=== PATIENT | female | born 1970 | race African-American/Black ===

== ENCOUNTER 2022-12-10 06:28 | Inpatient (IN) | payer BC, MEDICARE ==
[2022-12-10 07:18] LABS: Actual Bicarbonate (HCO3v) 19.9 mEq/L (22-28); Base Excess -3.8 mEq/L (-2.0 to +3.0); Calcium, Ionized (venous) 1.05 mmol/L (1.16-1.32); Chloride (VBG) 101 mmol/L (98-106); Hematocrit-VBG 47 % (36.0-47.0); Hemoglobin (Hb) 15.9 g/dL (11.7-16.0); Potassium (VBG) 4.58 mmol/L (3.70-5.30); Sodium 136.4 mmol/L (133-146); pH (venous) 7.401 (7.32-7.43)
[2022-12-10 07:20] LABS: #Eosinphils 0.1 thou/uL (0.0-0.7); #Lymphocytes 0.3 thou/uL (1.20-3.40); #Monocytes 0.3 thou/uL (0.11-0.59); #Neutrophils 6.3 thou/uL (1.40-6.50); %Eosinophils 0.7 % (0.0-10.0); %Monocytes 3.8 % (0.0-10.0); %Neutrophils 91.4 % (42.0-75.0); Hemoglobin 15.4 g/dL (12.0-16.0); Mean Corpuscular HGB CONC 34.4 g/dL (32.0-36.0); Mean Corpuscular Volume 87.2 fl (78.0-98.0); Platelet Count 151 10x3/uL (130-400); RBC Distribution Width 16.4 % (11.5-14.5); Red Blood Cell (RBC) Count 5.14 mill/uL (4.20-5.40); White Blood Cell (WBC) Count 6.9 10x3/uL (4.8-10.8)
[2022-12-10] MEDS ORDERED: Morphine 4 MG/ML VIAL ONE (07:34)
[2022-12-10] MEDS ORDERED: Ondansetron PF 4 MG/2 ML Vial ONE (07:34)
[2022-12-10 07:40] LABS: ALT (SGPT) 39 U/L (8-55); AST (SGOT) 26 U/L (5-34); Albumin 4.3 g/dL (3.5-5.0); Alkaline Phosphatase 81 U/L (40-110); Anion Gap 21 mmol/L (10-20); BUN (Urea Nitrogen) 34 mg/dL (9.8-20.1); Bilirubin, Total 0.4 mg/dL (0.2-1.2); Calc. Creatinine Clearance 0 mL/min (70-130); Calcium 10.1 mg/dL (7.8-10.44); Carbon Dioxide 17 mmol/L (22-29); Chloride 102 mmol/L (98-107); Estimated GFR 35; Globulin 4.1 g/dL (2.4-3.5); Potassium 4.8 mmol/L (3.5-5.1); Protein, Total 8.4 g/dL (6.0-8.3); Sodium 135 mmol/L (136-145)
[2022-12-10 07:44] LABS: Glucose 445 mg/dL (70-105)
[2022-12-10] MEDS ORDERED: Calcium Carbonate 500 MG ChewTAB PO PRN (08:44)
[2022-12-10] MEDS ORDERED: Ondansetron PF 4 MG/2 ML Vial IVP PRN (08:44)
[2022-12-10] MEDS ORDERED: Acetaminophen 325 MG TAB PO PRN (08:44)
[2022-12-10] MEDS ORDERED: Senokot S 8.6-50 MG TAB PO PRN (08:44)
[2022-12-10] MEDS ORDERED: Insulin Regular 300 UNITS/3 ML VIAL SC PRN ×2 (08:44→12:43)
[2022-12-10] MEDS ORDERED: Dextrose 50% Abboject 50 ML SYRINGE SLOW IVP PRN (08:44)
[2022-12-10] MEDS ORDERED: Ondansetron ODT 4 MG TAB PO PRN (08:44)
[2022-12-10] MEDS ORDERED: Dextrose 5% in Water 1,000 ML IV PRN (08:44)
[2022-12-10] MEDS ORDERED: Insulin Regular 300 UNITS/3 ML VIAL ONE (09:03)
[2022-12-10 09:08] LABS: Magnesium 1.8 mg/dL (1.6-2.6); Phosphorus 4.4 mg/dL (2.3-4.7)
[2022-12-10] MEDS ORDERED: Electrolyte Replacement Protocol 1 EACH FS SCH (09:45)
[2022-12-10 10:11] LABS: Bacteria/HPF 2+ HPF (None Seen); Bilirubin Negative (Negative); Blood, Urine Negative (Negative); Clarity Clear (Clear); Glucose, Urine (Dipstick) Greater than 1000 mg/dL (Negative); Ketone, Urine 20 mg/dL (Negative); Leukocyte Negative Leu/uL (Negative); Nitrite 2+ (Negative); Protein, Urine (Dipstick) Negative (Neg-Trace); RBC/HPF 0-3 HPF (0-3); Specific Gravity, Urine 1.039 (1.002-1.036); Squamous Epithelial 0-3 HPF (0-3); Urobilinogen Normal mg/dL (Less than 2); WBC/HPF 0-3 HPF (0-3)
[2022-12-10 10:42] LABS: Lactic Acid 2.2 mmol/L (0.5-2.2)
[2022-12-10] MEDS ORDERED: cefTRIAXone\\ROCEPHIN 1 GM in Sodium Chloride 0.9% 100 ML IVPB SCH (11:00)
[2022-12-10 11:08] LABS: Troponin I 0.014 ng/mL (< 0.028)
[2022-12-10] MEDS ORDERED: Pantoprazole 40 MG VIAL IVP SCH (11:30)
[2022-12-10] MEDS ORDERED: 1/2 NS w/KCL 20 mEq 1,000 ML IV SCH (11:30)
[2022-12-10 11:42] LABS: Hemoglobin A1c 11.8 % (4.0-6.0)
[2022-12-10] MEDS ORDERED: Iopamidol-370 76% 500 ML MDV (1 ML CHARGE) ONE (11:45)
[2022-12-10] MEDS ORDERED: Magnesium 2 GM/50 ML(in water) 2 GM in Premix Bag 1 BAG IVPB SCH (12:30)
[2022-12-10] MEDS ORDERED: Aspirin 81 mg Enteric Coated Tablet PO SCH (12:30)
[2022-12-10] MEDS ORDERED: Insulin Glargine 30 UNITS/0.3 ML VIAL SC SCH (12:45)
[2022-12-10] MEDS ORDERED: NIFEdipine XL 30 MG TAB PO PRN (12:47)
[2022-12-10 13:49] LABS: Anion Gap 15 mmol/L (10-20); BUN (Urea Nitrogen) 31 mg/dL (9.8-20.1); Calc. Creatinine Clearance 0 mL/min (70-130); Calcium 9.1 mg/dL (7.8-10.44); Carbon Dioxide 21 mmol/L (22-29); Chloride 106 mmol/L (98-107); Estimated GFR 47; Glucose 279 mg/dL (70-105); Potassium 4.2 mmol/L (3.5-5.1); Sodium 138 mmol/L (136-145)
[2022-12-10] MEDS: cefTRIAXone\\ROCEPHIN 1 GM in Sodium Chloride 0.9% 100 ML IVPB SCH (14:00)
[2022-12-10 14:12] LABS: Troponin I 0.014 ng/mL (< 0.028)
[2022-12-10] MEDS ORDERED: Aspirin 81 mg Enteric Coated Tablet ONE (15:26)
[2022-12-10] MEDS ORDERED: Magnesium 2 GM/50 ML BAG (IN WATER) ONE (15:26)
[2022-12-10] MEDS ORDERED: Pantoprazole 40 MG VIAL ONE (15:26)
[2022-12-10] MEDS ORDERED: cefTRIAXone (ROCEPHIN) 1 GM VIAL ONE (16:28)
[2022-12-10] MEDS ORDERED: hydrALAZINE 25 MG TAB ONE (16:37)
[2022-12-10] MEDS: Heparin 5,000 UNITS/ML VIAL SC SCH ×2 (16:39→21:55)
[2022-12-10] MEDS: hydrALAZINE 25 MG TAB PO SCH ×2 (16:43→21:55)
[2022-12-10 18:19] VITALS: BMI 36.0
[2022-12-10] MEDS: 1/2 NS w/KCL 20 mEq 1,000 ML IV SCH ×2 (18:22→18:42)
[2022-12-10] MEDS: Cilostazol 100 MG TAB PO SCH (21:55)
[2022-12-10] MEDS: Insulin Glargine 30 UNITS/0.3 ML VIAL SC SCH (21:55)
[2022-12-10] MEDS: HumaLOG 300 UNITS/3 ML VIAL SC PRN (23:08)
[2022-12-11] MEDS: HumaLOG 300 UNITS/3 ML VIAL SC PRN (01:17)
[2022-12-11] MEDS: 1/2 NS w/KCL 20 mEq 1,000 ML IV SCH ×2 (02:25→10:09)
[2022-12-11 04:41] LABS: #Lymphocytes 0.5 thou/uL (1.20-3.40); #Monocytes 0.3 thou/uL (0.11-0.59); #Neutrophils 2.3 thou/uL (1.40-6.50); %Basophils 0.5 % (0.0-1.0); %Eosinophils 0.7 % (0.0-10.0); %Lymphocytes 15.9 % (21.0-51.0); %Monocytes 10.2 % (0.0-10.0); %Neutrophils 72.7 % (42.0-75.0); Hemoglobin 12.7 g/dL (12.0-16.0); Mean Corpuscular HGB CONC 33.2 g/dL (32.0-36.0); Mean Corpuscular Hemoglobin 29.1 pg (27.0-31.0); Mean Corpuscular Volume 87.5 fl (78.0-98.0); Mean Platelet Volume 10.4 fL (7.4-10.4); Platelet Count 128 10x3/uL (130-400); RBC Distribution Width 16.3 % (11.5-14.5); Red Blood Cell (RBC) Count 4.37 mill/uL (4.20-5.40); White Blood Cell (WBC) Count 3.2 10x3/uL (4.8-10.8)
[2022-12-11 05:10] LABS: Anion Gap 13 mmol/L (10-20); BUN (Urea Nitrogen) 27 mg/dL (9.8-20.1); Calc. Creatinine Clearance 84 mL/min (70-130); Calcium 8.8 mg/dL (7.8-10.44); Carbon Dioxide 22 mmol/L (22-29); Chloride 105 mmol/L (98-107); Estimated GFR 50; Glucose 203 mg/dL (70-105); Magnesium 1.9 mg/dL (1.6-2.6); Phosphorus 2.5 mg/dL (2.3-4.7); Potassium 4.1 mmol/L (3.5-5.1); Sodium 136 mmol/L (136-145)
[2022-12-11] MEDS ORDERED: Magnesium 2 GM/50 ML(in water) 2 GM in Premix Bag 1 BAG IVPB SCH (08:00)
[2022-12-11] MEDS ORDERED: Pantoprazole 40 MG VIAL IVP SCH (09:00)
[2022-12-11] MEDS: Ezetimibe 10 MG TAB PO SCH (10:07)
[2022-12-11] MEDS: Aspirin 81 mg Enteric Coated Tablet PO SCH (10:07)
[2022-12-11] MEDS: hydrALAZINE 25 MG TAB PO SCH ×3 (10:07→20:46)
[2022-12-11] MEDS: Cilostazol 100 MG TAB PO SCH ×2 (10:07→20:46)
[2022-12-11] MEDS: Empagliflozin 10 MG TAB PO SCH (10:08)
[2022-12-11] MEDS: metFORMIN XR 500 MG TAB PO SCH (10:08)
[2022-12-11] MEDS: Heparin 5,000 UNITS/ML VIAL SC SCH ×3 (10:20→20:47)
[2022-12-11] MEDS ORDERED: Dextrose 5% in Water 1,000 ML IV PRN (11:24)
[2022-12-11] MEDS ORDERED: Dextrose 50% Abboject 50 ML SYRINGE SLOW IVP PRN (11:24)
[2022-12-11] MEDS ORDERED: Insulin Regular 300 UNITS/3 ML VIAL SC PRN (11:24)
[2022-12-11] MEDS: Insulin Regular 300 UNITS/3 ML VIAL SC PRN ×3 (11:49→20:47)
[2022-12-11] MEDS: Sodium Chloride 0.9% 1,000 ML IV SCH (13:04)
[2022-12-11] MEDS: cefTRIAXone\\ROCEPHIN 1 GM in Sodium Chloride 0.9% 100 ML IVPB SCH (13:13)
[2022-12-11] MEDS: Insulin Glargine 30 UNITS/0.3 ML VIAL SC SCH (20:47)
[2022-12-11] MEDS ORDERED: Atorvastatin Calcium 40 MG TAB PO SCH (21:00)
[2022-12-12] MEDS: Sodium Chloride 0.9% 1,000 ML IV SCH (05:09)
[2022-12-12] MEDS: Insulin Regular 300 UNITS/3 ML VIAL SC PRN ×2 (05:16→08:41)
[2022-12-12 07:00] LABS: #Lymphocytes 0.7 thou/uL (1.20-3.40); #Monocytes 0.3 thou/uL (0.11-0.59); #Neutrophils 1.1 thou/uL (1.40-6.50); %Basophils 1.4 % (0.0-1.0); %Eosinophils 1.3 % (0.0-10.0); %Lymphocytes 33.3 % (21.0-51.0); %Monocytes 13.2 % (0.0-10.0); %Neutrophils 50.9 % (42.0-75.0); Hemoglobin 12.3 g/dL (12.0-16.0); Mean Corpuscular HGB CONC 34.7 g/dL (32.0-36.0); Mean Corpuscular Hemoglobin 30.1 pg (27.0-31.0); Mean Corpuscular Volume 86.7 fl (78.0-98.0); Mean Platelet Volume 10.3 fL (7.4-10.4); Platelet Count 122 10x3/uL (130-400); RBC Distribution Width 16.3 % (11.5-14.5); Red Blood Cell (RBC) Count 4.11 mill/uL (4.20-5.40); White Blood Cell (WBC) Count 2.2 10x3/uL (4.8-10.8)
[2022-12-12 07:09] LABS: Anion Gap 13 mmol/L (10-20); BUN (Urea Nitrogen) 21 mg/dL (9.8-20.1); Calc. Creatinine Clearance 86 mL/min (70-130); Calcium 8.7 mg/dL (7.8-10.44); Carbon Dioxide 21 mmol/L (22-29); Chloride 108 mmol/L (98-107); Estimated GFR 51; Glucose 230 mg/dL (70-105); Sodium 138 mmol/L (136-145)
[2022-12-12] MEDS: hydrALAZINE 25 MG TAB PO SCH (08:38)
[2022-12-12] MEDS: Aspirin 81 mg Enteric Coated Tablet PO SCH (08:38)
[2022-12-12] MEDS: Ezetimibe 10 MG TAB PO SCH (08:39)
[2022-12-12] MEDS: Heparin 5,000 UNITS/ML VIAL SC SCH (08:39)
[2022-12-12] MEDS: metFORMIN XR 500 MG TAB PO SCH (08:39)
[2022-12-12] MEDS: Cilostazol 100 MG TAB PO SCH (08:49)
[2022-12-12] MEDS: Empagliflozin 10 MG TAB PO SCH (08:49)
[2022-12-12 11:38] VITALS: BP 169/81; TEMP 97.7
== END 2022-12-12 11:40 | disposition home or self-care (01) | DRG 638 ==
LOC: ERS 06:28 → INTOOBSV 09:02 → ERHOLD 09:02 → 2NO 18:06 → OBSVTOIN 12-11 09:20 → T4-A 12-11 12:39
PROVIDERS: ADMIT Hospitalist; ATTEND Hospitalist
DX: E11.10 Type 2 diabetes mellitus with ketoacidosis without coma (principal); N17.9 Acute kidney failure, unspecified; N39.0 Urinary tract infection, site not specified; E66.01 Morbid (severe) obesity due to excess calories; E11.51 Type 2 diabetes mellitus with diabetic peripheral angiopathy without gangrene; E78.5 Hyperlipidemia, unspecified; N18.30 Chronic kidney disease, stage 3 unspecified; E11.22 Type 2 diabetes mellitus with diabetic chronic kidney disease; E83.42 Hypomagnesemia; I12.9 Hypertensive chronic kidney disease with stage 1 through stage 4 chronic kidney disease, or unspecified chronic kidney disease; K21.9 Gastro-esophageal reflux disease without esophagitis; Z68.36 Body mass index [BMI] 36.0-36.9, adult; Z89.511 Acquired absence of right leg below knee; Z88.0 Allergy status to penicillin; Z95.828 Presence of other vascular implants and grafts; Z83.3 Family history of diabetes mellitus; Z82.49 Family history of ischemic heart disease and other diseases of the circulatory system; Z79.899 Other long term (current) drug therapy; Z79.84 Long term (current) use of oral hypoglycemic drugs; Z79.82 Long term (current) use of aspirin
CPT/HCPCS: 36415; 36416; 74177; 80048; 80053; 81003; 81015; 82010; 82805; 83036; 83605; 83690; 83735; 84100; 84484; 85025; 87077; 87086; 87186; 93005; 94760; 96361; 96374; 96375; C9113; J0696; J1644; J1815; J2270; J2405; J3475; J3480; J3490; J7050; Q9967

== ENCOUNTER 2023-09-04 07:24 | Outpatient (CLI) | payer BC | END 2023-09-04 07:25 | disposition home or self-care (01) | LOC: ULT 07:24 | PROVIDERS: ATTEND Internal Medicine Nephrology | DX: I12.9 Hypertensive chronic kidney disease with stage 1 through stage 4 chronic kidney disease, or unspecified chronic kidney disease (principal); N18.30 Chronic kidney disease, stage 3 unspecified | CPT/HCPCS: 76770; 93975 ==

== ENCOUNTER 2023-12-20 05:54 | Emergency (ER) | payer BC | END 2023-12-20 12:44 | disposition home or self-care (01) | LOC: ERS 05:54 | DX: K86.89 Other specified diseases of pancreas (principal); I10 Essential (primary) hypertension; E11.9 Type 2 diabetes mellitus without complications | CPT/HCPCS: 36416; 74176; 74177; 80053; 81001; 83605; 83690; 84484; 85025; 87077; 87086; 87186; 93005; 96361; 96372; 96374; 96375; J0780; J1815; J1885; J2270; J2405; Q9967 ==

== ENCOUNTER 2024-03-01 23:05 | Emergency (ER) | payer BC | END 2024-03-02 00:50 | disposition home or self-care (01) | LOC: ERS 23:05 | DX: S61.111A Laceration without foreign body of right thumb with damage to nail, initial encounter (principal); I10 Essential (primary) hypertension; E11.9 Type 2 diabetes mellitus without complications; W26.8XXA Contact with other sharp object(s), not elsewhere classified, initial encounter; Y93.89 Activity, other specified | CPT/HCPCS: 12001 ==

== ENCOUNTER 2024-05-24 14:08 | Outpatient (CLI) | payer BC ==
[~2024-05-24 14:08] MED LIST: Iopamidol 370 76% 100 ML VIAL ONE
== END 2024-05-24 14:09 | disposition home or self-care (01) ==
LOC: CT 14:08
PROVIDERS: ATTEND Internal Medicine Cardiovascular Disease
DX: I73.9 Peripheral vascular disease, unspecified (principal); I70.8 Atherosclerosis of other arteries; I77.1 Stricture of artery
CPT/HCPCS: 75635; Q9967